=== PATIENT | male | born 2000 ===

== ENCOUNTER 2023-06-14 01:10 | Emergency (ER) | payer OTHER ==
[~2023-06-14] VITALS: Ht 172.7 cm; Wt 86.2 kg
[2023-06-14 01:18] VITALS: O2SAT 97
[2023-06-14] MEDS ORDERED: TDAP DIPH,PERTUSS,TET VAC/PF 0.5 ML DISP.SYRIN IM ONE ×2 (01:30→01:57)
[2023-06-15] MEDS ORDERED: IBUP-1957 PO (02:24)
== END 2023-06-14 03:15 | disposition left against medical advice (07) ==
LOC: ER 01:14
DX: F10.129 Alcohol abuse with intoxication, unspecified (principal); R51.9 Headache, unspecified; Y90.9 Presence of alcohol in blood, level not specified
CPT/HCPCS: 70450; 70486; 72125; 90715; A4606; A4663

== ENCOUNTER 2023-06-14 22:56 | Emergency (ER) | payer OTHER ==
[~2023-06-14] VITALS: Ht 167.6 cm; Wt 88.9 kg
[2023-06-15] MEDS ORDERED: IBUP-1957 PO (02:24)
[2023-06-15 03:13] VITALS: BP 130/66; TEMP 99; O2SAT 99
== END 2023-06-15 03:15 | disposition home or self-care (01) ==
LOC: ER 23:10
DX: S06.0X0A Concussion without loss of consciousness, initial encounter (principal); S00.83XA Contusion of other part of head, initial encounter; Z79.1 Long term (current) use of non-steroidal anti-inflammatories (NSAID); Y04.2XXA Assault by strike against or bumped into by another person, initial encounter; Y93.89 Activity, other specified; Y92.89 Other specified places as the place of occurrence of the external cause; Y99.8 Other external cause status
CPT/HCPCS: A4606; A4663